=== PATIENT | female | born 1995 | race African-American/Black ===

== ENCOUNTER 2017-11-28 21:17 | Inpatient (IN) ==
[2017-11-29] MEDS ORDERED: cefTRIAXone 1,000 MG in SODIUM CHLORIDE 0.9% 100 ML IV STA (00:25)
[2017-11-29] MEDS ORDERED: SODIUM CHLORIDE 0.9% 500 ML IV STA (00:25)
[2017-11-29] MEDS ORDERED: ALBUTEROL/IPRATROPIUM 3 ML NEB RESP TX STA (00:25)
[2017-11-29] MEDS ORDERED: methylPREDNISolone SOD SUC 125 MG/2 ML VIAL IV STA (00:25)
[2017-11-29] MEDS ORDERED: SODIUM CHLORIDE 0.9% 1,000 ML IV STA (00:27)
[2017-11-29] MEDS ORDERED: INSULIN REGULAR 100 UNIT/ML IV STA (00:28)
[2017-11-29 00:39] LABS: Apearance,Urine CLEAR (Clear); Bilirubin,Urine Negative (Negative); Blood, Urine Negative (Negative); Glucose,Urine (UA) >=500 mg/dL (Negative); Ketones,Urine 80 mg/dL (Negative); Mucus,Urine Occasional /LPF (Occasional); Nitrite,Urine Negative (Negative); Protein,Urine Negative; RBC,Urine 1 /HPF (0-4); Squamous Epithelial Cell,Urine Occasional /HPF (0-10); Urine Color Straw (Yellow); Urine Specific Gravity 1.026 (1.001-1.035); Urine Urobilinogen < 2.0 EU/DL (0.2-1.0); WBC,Urine 2 /HPF (0-6)
[2017-11-29] MEDS ORDERED: INSULIN REGULAR 100 UNIT/ML ONE (00:39)
[2017-11-29] MEDS ORDERED: cefTRIAXone 1,000 MG VIAL ONE (00:40)
[2017-11-29 00:45] LABS: Barbiturates Screen,Urine Negative (Negative); Benzodiazepines Screen,Urine Negative (Negative); Cannabinoid Screen,Urine Positive (Negative); Opiate Screen,Urine Negative (Negative); Phencyclidine Screen,Urine Negative (Negative)
[2017-11-29 00:46] LABS: Alanine Aminotransferase 42 U/L (13-56); Albumin 3.7 G/DL (3.4-5.0); Alkaline Phosphatase 93 U/L (45-117); Aspartate Amino Transferase 25 U/L (0-37); Bilirubin,Total < 0.39 MG/DL (0.2-1.0); Blood Urea Nitrogen 11 MG/DL (7-18); Glucose 461 MG/DL (74-106); Osmolality,Calculated 284.4 MOS/KG (273-304); Potassium 4.6 MMOL/L (3.5-5.1); Sodium 133 MMOL/L (136-145); Total Protein 6.7 G/DL (6.4-8.3); Troponin I Only < 0.015 NG/ML (0.00-0.045)
[2017-11-29 00:54] LABS: Basophils % 0.4 % (0.0-0.8); Eosinophils # 0.1 10*3/uL (0.0-0.87); Eosinophils % 0.9 % (0.00-10.9); Hematocrit 39.3 VOL% (35.7-47.0); Hemoglobin 12.7 GM/DL (12.0-16.0); Immature Granulocytes % 0.4 %; Immature Granulocytes Absolute 0.03 #; Lymphocytes # 1.2 10*3/uL (1.4-4.0); Lymphocytes % 15.4 % (21.3-54.2); Mean Corpuscular HGB Conc 32.3 GM/DL (32-36); Mean Corpuscular Hemoglobin 26 PG (27-34); Mean Corpuscular Volume 79.7 FL (87-102); Mean Platelet Volume 9.9 FL (9.6-12.0); Monocytes # 0.5 10*3/uL (0.11-0.8); Monocytes % 6.5 % (1.7-12.7); Neutrophils # 5.8 10*3/uL (1.4-7.4); Neutrophils % 76.4 % (38.7-73.9); Platelet Count 295 T/CUMM (130-400); Red Blood Count 4.93 MC/CUMM (3.8-5.5); Red Cell Distribution Width 13.9 % (9.3-17.3); White Blood Count 7.6 T/CUMM (4-12)
[2017-11-29] MEDS ORDERED: guaiFENesin 200 MG/10 ML UDCUP ONE (02:24)
[2017-11-29] MEDS ORDERED: guaiFENesin 200 MG/10 ML UDCUP PO STA ×2 (02:24→02:26)
[2017-11-29] MEDS ORDERED: DEXTROSE 50% 25 GM/50 ML VIAL IV PRN (03:29)
[2017-11-29] MEDS ORDERED: ACETAMINOPHEN 325 MG TABLET PO PRN (03:29)
[2017-11-29] MEDS ORDERED: GLUCAGON 1 MG VIAL IM PRN (03:29)
[2017-11-29] MEDS ORDERED: SODIUM CHLORIDE 0.9% 1,000 ML IV SCH (03:30)
[2017-11-29] MEDS ORDERED: ALBUTEROL 1.25 MG/3 ML NEB RESP TX PRN (03:34)
[2017-11-29] MEDS: SODIUM CHLORIDE 0.9% 1,000 ML IV SCH ×2 (06:53→16:32)
[2017-11-29 07:01] LABS: Calcium 8.4 MG/DL (8.5-10.1); Osmolality,Calculated 278.4 MOS/KG (273-304)
[2017-11-29] MEDS: ALBUTEROL/IPRATROPIUM 3 ML NEB RESP TX SCH ×4 (07:12→20:10)
[2017-11-29] MEDS: INSULIN NPH 100 UNIT/ML SUBCUT SCH ×2 (09:15→22:06)
[2017-11-29] MEDS: INSULIN REGULAR 100 UNIT/ML SUBCUT SCH ×4 (09:17→22:08)
[2017-11-29] MEDS: cefTRIAXone 1,000 MG in SYRINGE 1 EACH IV SCH (16:30)
[2017-11-30] MEDS: ALBUTEROL/IPRATROPIUM 3 ML NEB RESP TX SCH ×7 (00:16→23:02)
[2017-11-30] MEDS: SODIUM CHLORIDE 0.9% 1,000 ML IV SCH ×2 (02:27→12:47)
[2017-11-30 05:51] LABS: Basophils % 1.2 % (0.0-0.8); Eosinophils # 0.4 10*3/uL (0.0-0.87); Eosinophils % 10.2 % (0.00-10.9); Hematocrit 33.6 VOL% (35.7-47.0); Hemoglobin 10.9 GM/DL (12.0-16.0); Lymphocytes # 2.1 10*3/uL (1.4-4.0); Lymphocytes % 60.6 % (21.3-54.2); Mean Corpuscular HGB Conc 32.4 GM/DL (32-36); Mean Corpuscular Hemoglobin 26 PG (27-34); Mean Corpuscular Volume 80.4 FL (87-102); Mean Platelet Volume 9.5 FL (9.6-12.0); Monocytes # 0.5 10*3/uL (0.11-0.8); Monocytes % 15.7 % (1.7-12.7); Neutrophils # 0.4 10*3/uL (1.4-7.4); Neutrophils % 12.3 % (38.7-73.9); Platelet Count 246 T/CUMM (130-400); Red Blood Count 4.18 MC/CUMM (3.8-5.5); White Blood Count 3.4 T/CUMM (4-12)
[2017-11-30 06:20] LABS: Osmolality,Calculated 284.6 MOS/KG (273-304); Potassium 3.9 MMOL/L (3.5-5.1)
[2017-11-30 06:48] LABS: Eosinophils 7 % (0-10); Lymphocytes 61 % (20-55); Segmented Neutrophils 17 % (50-85); Total Cells Counted 100
[2017-11-30 06:49] LABS: Platelet Estimate Adequate
[2017-11-30 06:50] LABS: Burr Cells Slight
[2017-11-30] MEDS: INSULIN REGULAR 100 UNIT/ML SUBCUT SCH ×4 (08:48→21:13)
[2017-11-30] MEDS: predniSONE 20 MG TABLET PO SCH (08:49)
[2017-11-30] MEDS: INSULIN NPH 100 UNIT/ML SUBCUT SCH ×2 (08:50→21:08)
[2017-11-30] MEDS: cefTRIAXone 1,000 MG in SYRINGE 1 EACH IV SCH (16:30)
[2017-11-30] MEDS: BENZONATATE 100 MG CAPSULE PO PRN (21:08)
[2017-12-01] MEDS: ALBUTEROL/IPRATROPIUM 3 ML NEB RESP TX SCH ×6 (02:35→23:25)
[2017-12-01 06:33] LABS: Basophils % 0.4 % (0.0-0.8); Eosinophils # 0.1 10*3/uL (0.0-0.87); Eosinophils % 2.1 % (0.00-10.9); Hematocrit 33.1 VOL% (35.7-47.0); Hemoglobin 10.8 GM/DL (12.0-16.0); Immature Granulocytes % 0.2 %; Immature Granulocytes Absolute 0.01 #; Lymphocytes # 2.5 10*3/uL (1.4-4.0); Lymphocytes % 48.6 % (21.3-54.2); Mean Corpuscular HGB Conc 32.6 GM/DL (32-36); Mean Corpuscular Hemoglobin 26 PG (27-34); Mean Corpuscular Volume 79.6 FL (87-102); Mean Platelet Volume 9.7 FL (9.6-12.0); Monocytes # 0.4 10*3/uL (0.11-0.8); Monocytes % 8.4 % (1.7-12.7); Neutrophils # 2.1 10*3/uL (1.4-7.4); Neutrophils % 40.3 % (38.7-73.9); Platelet Count 256 T/CUMM (130-400); Red Blood Count 4.16 MC/CUMM (3.8-5.5); Red Cell Distribution Width 14.1 % (9.3-17.3); White Blood Count 5.1 T/CUMM (4-12)
[2017-12-01 07:00] LABS: Calcium 8.2 MG/DL (8.5-10.1); Osmolality,Calculated 284.7 MOS/KG (273-304); Potassium 3.4 MMOL/L (3.5-5.1)
[2017-12-01] MEDS: INSULIN REGULAR 100 UNIT/ML SUBCUT SCH ×4 (08:32→21:02)
[2017-12-01] MEDS: INSULIN NPH 100 UNIT/ML SUBCUT SCH ×2 (08:32→21:20)
[2017-12-01] MEDS: predniSONE 20 MG TABLET PO SCH (08:32)
[2017-12-01] MEDS: POTASSIUM CHLORIDE 20 MEQ TABLET PO PRN ×3 (13:58→18:38)
[2017-12-01] MEDS: cefTRIAXone 1,000 MG in SYRINGE 1 EACH IV SCH (16:37)
[2017-12-01] MEDS: BENZONATATE 100 MG CAPSULE PO PRN (19:47)
[2017-12-02 02:23] LABS: Calcium 8.4 MG/DL (8.5-10.1); Osmolality,Calculated 285.3 MOS/KG (273-304); Potassium 4.1 MMOL/L (3.5-5.1)
[2017-12-02] MEDS: ALBUTEROL/IPRATROPIUM 3 ML NEB RESP TX SCH ×2 (03:20→07:28)
[2017-12-02 08:39] VITALS: BP 111/69
[2017-12-02] MEDS: INSULIN REGULAR 100 UNIT/ML SUBCUT SCH (08:46)
[2017-12-02] MEDS: INSULIN NPH 100 UNIT/ML SUBCUT SCH (08:47)
[2017-12-02] MEDS: BENZONATATE 100 MG CAPSULE PO PRN (08:48)
[2017-12-02] MEDS: predniSONE 20 MG TABLET PO SCH (08:48)
== END 2017-12-02 10:45 | disposition home or self-care (01) | DRG 141 ==
LOC: N.ED 21:17 → N.EDINP 11-29 03:30 → N.4E 11-29 04:41
PROVIDERS: ADMIT Internal Medicine; ATTEND Internal Medicine